=== PATIENT | male | born 1975 | race Hispanic/Latino ===

== ENCOUNTER 2019-09-12 22:40 | Inpatient (IN) | payer SELFPAY ==
[2019-09-12] MEDS ORDERED: NA CHLORIDE 0.9% 2,000 ML ONE (22:53)
[2019-09-12] MEDS ORDERED: NA CHLORIDE 0.9% 1,000 ML ONE (23:02)
[2019-09-12] MEDS ORDERED: THIAMINE 200 MG/2 ML INJ ONE (23:02)
[2019-09-12] MEDS ORDERED: FOLIC ACID 5 MG/ML VIAL ONE (23:03)
[2019-09-12] MEDS ORDERED: PIPER/TAZO/NS 3.375gm 3.375 GM/100 ML BAG ONE (23:04)
--- NOTE | 2019-09-12 23:04 | EDPHYS ---
Physician Documentation [facility] Name: Lloyd Lizarraga Jr Age: 43 yrs Sex: Male : 1975 Arrival Date: 09/12/2019 Time: 22:48 Bed 4 Private MD: ED Physician Jerry Christopher HPI: 09/12 22:57 This 43 yrs old Male presents to ER via EMS with complaints of AMS, DRUG jennifer OVERDOSE. 22:57 The patient presents with a history of heart racing. Possible causes: drug use, jennifer alcohol, head injury, low blood sugar, sepsis. Associated signs and symptoms: Pertinent positives: combativeness, confusion. Patient's baseline: Neuro: alert and fully oriented. Unable to obtain HPI due to obtunded state, patient is being uncooperative. Historical: - Allergies: 23:22 No Known Allergies; wh - Home Meds: 23:22 Unable to obtain [Active]; wh - PMHx: 23:22 Unable to obtain; - PSHx: 23:22 Unable to obtain; - Immunization history:: Adult Immunizations unknown. - Social history:: Smoking status: Patient uses tobacco products. - Family history:: not pertinent. - Ebola Screening: : No symptoms or risks identified at this time. ROS: 22:57 Constitutional: Negative for fever, chills, and weight loss, Eyes: Negative for injury, jennifer pain, redness, and discharge, ENT: Negative for injury, pain, and discharge, Neck: Negative for injury, pain, and swelling, Respiratory: Negative for shortness of breath, cough, wheezing, and pleuritic chest pain, Abdomen/GI: Negative for abdominal pain, nausea, vomiting, diarrhea, and constipation, Back: Negative for injury and pain, : Negative for injury, bleeding, discharge, and swelling, MS/Extremity: Negative for injury and deformity, Skin: Negative for injury, rash, and discoloration, Psych: Negative for depression, anxiety, suicide ideation, homicidal ideation, and hallucinations, Allergy/Immunology: Negative for hives, rash, and allergies, Endocrine: Negative for neck swelling, polydipsia, polyuria, polyphagia, and marked weight changes, Hematologic/Lymphatic: Negative for swollen nodes, abnormal bleeding, and unusual bruising. 22:57 Cardiovascular: Positive for palpitations. 22:57 Neuro: Positive for altered mental status. Exam: 22:57 Constitutional: This is a well developed, well nourished patient who is awake, alert, jennifer and in no acute distress. Head/Face: Normocephalic, atraumatic. Eyes: Pupils equal round and reactive to light, extra-ocular motions intact. Lids and lashes normal. Conjunctiva and sclera are non-icteric and not injected. Cornea within normal limits. Periorbital areas with no swelling, redness, or edema. ENT: Nares patent. No nasal discharge, no septal abnormalities noted. Tympanic membranes are normal and external auditory canals are clear. Oropharynx with no redness, swelling, or masses, exudates, or evidence of obstruction, uvula midline. Mucous membranes moist. Neck: Trachea midline, no thyromegaly or masses palpated, and no cervical lymphadenopathy. Supple, full range of motion without nuchal rigidity, or vertebral point tenderness. No Meningismus. Chest/axilla: Normal chest wall appearance and motion. Nontender with no deformity. No lesions are appreciated. Respiratory: Lungs have equal breath sounds bilaterally, clear to auscultation and percussion. No rales, rhonchi or wheezes noted. No increased work of breathing, no retractions or nasal flaring. Abdomen/GI: Soft, non-tender, with normal bowel sounds. No distension or tympany. No guarding or rebound. No evidence of tenderness throughout. Back: No spinal tenderness. No costovertebral tenderness. Full range of motion. Male : Normal genitalia with no discharge or lesions. Skin: Warm, dry with normal turgor. Normal color with no rashes, no lesions, and no evidence of cellulitis. MS/ Extremity: Pulses equal, no cyanosis. Neurovascular intact. Full, normal range of motion. Psych: Awake, alert, with orientation to person, place and time. Behavior, mood, and affect are within normal limits. 22:57 Cardiovascular: Rate: tachycardic, Rhythm: regular, Pulses: Pulses are 2+ in bilateral radial, brachial, femoral, popliteal, posterior tibial and and dorsalis pedis arteries.. Heart sounds: normal, normal S1and S2, no S3 or S4, no murmur, no rub, no gallop, Edema: is not appreciated, JVD: is not appreciated. Vital Signs: 22:53 BP 84 / 68; Pulse 140; Resp 20; Temp 96.9; Pulse Ox 99% 2 lpm ; 09/13 00:04 Weight 81.65 kg; ea 00:06 BP 122 / 72; Pulse 124; Resp 18; Pulse Ox 100% ; ea 00:21 BP 122 / 72; Pulse 119; Resp 18; Pulse Ox 100% ; ea 00:25 Temp 97.4; ea 01:00 BP 102 / 64; Pulse 105; Resp 18; Pulse Ox 98% on R/A; ea 02:00 BP 106 / 65; Pulse 98; Resp 18; Temp 97.6; Pulse Ox 98% on R/A; ea 03:00 BP 105 / 68; Pulse 98; Resp 18; Pulse Ox 97% on R/A; MDM: 09/12 22:49 Patient medically screened. [facility] 23:00 Data reviewed: vital signs, nurses notes, lab test result(s), EKG, radiologic studies, [facility] CT scan, plain films. 09/12 22:50 Order name: Acetaminophen; Complete Time: 00:13 09/12 22:50 Order name: Basic Metabolic Panel; Complete Time: 00:13 09/12 22:50 Order name: CBC with Diff; Complete Time: 23:54 09/12 22:50 Order name: ETOH Level; Complete Time: 23:54 09/12 22:50 Order name: Hepatic Function; Complete Time: 00:13 09/12 22:50 Order name: PT-INR 09/12 22:50 Order name: Ptt, Activated 09/12 22:50 Order name: Salicylate; Complete Time: 23:54 09/12 22:50 Order name: Urine Drug Screen 09/12 22:56 Order name: Procalcitonin [facility] 09/12 22:56 Order name: Lactate; Complete Time: 23:54 [facility] 09/12 22:56 Order name: XRAY Chest (1 view) [facility] 09/12 22:56 Order name: CT Head C Spine [facility] 09/12 23:04 Order name: ABG; Complete Time: 23:54 aa1 09/12 23:04 Order name: Urine Dipstick--Ancillary (enter results); Complete Time: 23:54 cm6 09/12 23:40 Order name: Troponin (Emerg Dept Use Only); Complete Time: 00:13 EDMS 09/12 23:40 Order name: NT PRO-BNP; Complete Time: 00:13 EDHI 09/12 23:40 Order name: Magnesium; Complete Time: 00:13 [facility] 09/13 00:14 Order name: Lactate cm6 09/13 01:15 Order name: CBC with Automated Diff EDHI 09/13 01:15 Order name: CBC with Automated Diff EDHI 09/13 01:15 Order name: Comprehensive Metabolic Panel [facility] 09/13 01:15 Order name: Comprehensive Metabolic Panel [facility] 09/12 22:50 Order name: EKG; Complete Time: 22:51 09/12 22:50 Order name: EKG - Nurse/Tech; Complete Time: 23:00 09/12 22:50 Order name: IV Saline Lock; Complete Time: 23:00 09/12 22:50 Order name: Labs collected and sent; Complete Time: 23:01 09/12 22:50 Order name: Urine Dipstick-Ancillary (obtain specimen); Complete Time: 23:01 09/12 22:56 Order name: Cardiac monitoring; Complete Time: 23:01 [facility] 09/12 22:56 Order name: O2 Per Protocol; Complete Time: 23:01 [facility] 09/12 22:56 Order name: O2 Sat Monitoring; Complete Time: 23:01 [facility] 09/12 22:56 Order name: Newell; Complete Time: 23:01 [facility] 09/12 22:56 Order name: Restraint:Violent/Self Destructive (Adult:18yo or >); Complete Time: 23:01 [facility] 09/13 01:15 Order name: CONS Pharmacy Consult [facility] 09/13 01:15 Order name: Regular EDHI Administered Medications: 23:00 Drug: NS 0.9% (30 ml/kg) 30 ml/kg Route: IV; Rate: bolus; Site: right forearm; 09/13 01:56 Follow up: Response: No adverse reaction; IV Status: Completed infusion; IV Intake: ea 2500ml 09/12 23:10 Drug: foLIC Acid 1 mg Route: IVPB; Site: right forearm; ea 09/13 00:04 Follow up: IV Status: Completed infusion 09/12 23:11 Drug: Thiamine 100 mg Route: IV; Rate: bolus; Site: right forearm; ea 09/13 00:04 Follow up: Response: No adverse reaction; IV Status: Completed infusion 09/12 23:15 Drug: Zosyn 3.375 grams Route: IVPB; Infused Over: 60 mins; Site: left antecubital; 09/13 00:20 Follow up: Response: No adverse reaction; IV Status: Completed infusion; IV Intake: ea 100ml 00:04 Drug: NS 0.9% 1000 ml Route: IV; Rate: 125 ml/hr; Site: left antecubital; 01:54 Drug: Potassium Chloride 20 mEq Route: IV; Rate: per protocol; Site: left antecubital; 03:22 Follow up: Response: No adverse reaction; IV Status: Completed infusion Disposition: 09/12/19 23:03 Hospitalization ordered by Mary Anne Proctor for Inpatient Admission. Preliminary diagnosis are Altered mental status, unspecified, Tachycardia, unspecified, Abuse of non-psychoactive substances, Hypokalemia. - Bed requested for Telemetry/MedSurg (Inpatient). - Status is Inpatient Admission. - Condition is Stable. - Problem is new. - Symptoms are unchanged. UTI on Admission? No Signatures: Dispatcher [employer] EDHI Jerry Christopher MD MD cha Garcia, Cindy, RN AIMEE Kristina Menendez RN RN ea Habalo, Winsy Corrections: (The following items were deleted from the chart) 09/12 23:39 22:57 MAGNESIUM+C.LAB.BRZ ordered. [facility] 23:39 22:57 PROBNP+C.LAB.BRZ ordered. [facility] EDHI 23:39 22:57 TROPONIN (EMERG DEPT USE ONLY)+C.LAB.BRZ ordered. [facility] 09/13 00:14 09/12 23:03 Hospitalization Ordered by Mary Anne Proctor MD for Inpatient Admission. [facility] Preliminary diagnosis is Altered mental status, unspecified; Tachycardia, unspecified; Abuse of non-psychoactive substances. Bed requested for Telemetry/MedSurg (Inpatient). Status is Inpatient Admission. Condition is Stable. Problem is new. Symptoms are unchanged. UTI on Admission? No. jennifer 09/13 01:53 00:14 09/12/2019 23:03 Hospitalization Ordered by Mary Anne Proctor MD for Inpatient cg Admission. Preliminary diagnosis is Altered mental status, unspecified; Tachycardia, unspecified; Abuse of non-psychoactive substances; Hypokalemia. Bed requested for Telemetry/MedSurg (Inpatient). Status is Inpatient Admission. Condition is Stable. Problem is new. Symptoms are unchanged. UTI on Admission? No. jennifer 03:19 01:53 09/12/2019 23:03 Hospitalization Ordered by Mary Anne Proctor MD for Inpatient Admission. Preliminary diagnosis is Altered mental status, unspecified; Tachycardia, unspecified; Abuse of non-psychoactive substances; Hypokalemia. Bed requested for Telemetry/MedSurg (Inpatient). Status is Inpatient Admission. Condition is Stable. Problem is new. Symptoms are unchanged. UTI on Admission? No.
--- NOTE | 2019-09-12 23:04 | ER ---
Nurse's Notes [facility] Name: Lloyd Lizarraga Jr Age: 43 yrs Sex: Male : 1975 Arrival Date: 09/12/2019 Time: 22:48 Bed 4 Private MD: Diagnosis: Altered mental status, unspecified;Tachycardia, unspecified;Abuse of non-psychoactive substances;Hypokalemia Presentation: 09/12 22:49 Presenting complaint: EMS states: [place] was [place] the [place], someone was able to track his friend and his friend called EMS. Transition of care: patient was not received from another setting of care. Onset of symptoms was September 12, 2019. Risk Assessment: Do you want to hurt yourself or someone else? Unable to obtain. Initial Sepsis Screen: Does the patient meet any 2 criteria? HR > 90 bpm. Does the patient have a suspected source of infection? No. Patient's initial sepsis screen is negative. Care prior to arrival: Medication(s) given: Narcan 2 mg IV IV initiated. 18 GA, in the left antecubital area, Glucose check: 108. 22:49 Method Of Arrival: EMS: [facility] 22:49 Acuity: MIGUELINA 3 Triage Assessment: 23:25 General: Appears Unresponsive. Historical: - Allergies: 23:22 No Known Allergies; - Home Meds: 23:22 Unable to obtain [Active]; - PMHx: 23:22 Unable to obtain; - PSHx: 23:22 Unable to obtain; - Immunization history:: Adult Immunizations unknown. - Social history:: Smoking status: Patient uses tobacco products. - Family history:: not pertinent. - Ebola Screening: : No symptoms or risks identified at this time. Screenin:22 Abuse screen: Denies threats or abuse. Denies injuries from another. Nutritional screening: No deficits noted. Tuberculosis screening: No symptoms or risk factors identified. Fall Risk None identified. Assessment: 23:23 General: Behavior is unresponsive. Pt responds to pain. Pain: Unable to use pain scale. wh Patient is unresponsive. Neuro: Level of Consciousness is unresponsive, Pupils are pinpoint. Cardiovascular: Heart tones S1 S2. Respiratory: Airway is patent Respiratory effort is even, unlabored, Respiratory pattern is regular, symmetrical, Breath sounds are clear bilaterally. GI: Abdomen is flat, non-distended. : Genitalia appear normal. EENT: Oral mucosa is moist. Derm: Skin is intact, is healthy with good turgor, Skin is pink, warm \T\ dry. normal. Musculoskeletal: Circulation, motion, and sensation intact. 09/13 00:00 Reassessment: Patient and/or family updated on plan of care and expected duration. Pain ea level reassessed. Pt resting no longer attempting to remove IV lines. Order obtained to discontinue restraints. Restraints discontinued, pt tolerated well. Pt resting with eyes closed, respirations even and symmetrical. No s/s of pain or discomfort. 01:00 Reassessment: Patient and/or family updated on plan of care and expected duration. Pain ea level reassessed. Pt resting with eyes closed, respirations even and unlabored, chest expansions even and symmetrical. 02:45 Reassessment: Patient and/or family updated on plan of care and expected duration. Pain ea level reassessed. Pt resting with eyes closed, respirations even and unlabored. Chest expansions even and symmetrical. No s/s of pain or discomfort noted at this time. 03:20 Reassessment: Patient and/or family updated on plan of care and expected duration. Pain ea level reassessed. Pt resting with eyes closed, respirations even and unlabored, chest expansions even and symmetrical. No s/s of pain or discomfort noted at this time. Pt admitted to fourth floor, left ED via stretcher, tolerating well. Vital Signs: 09/12 22:53 BP 84 / 68; Pulse 140; Resp 20; Temp 96.9; Pulse Ox 99% 2 lpm ; 09/13 00:04 Weight 81.65 kg; ea 00:06 BP 122 / 72; Pulse 124; Resp 18; Pulse Ox 100% ; ea 00:21 BP 122 / 72; Pulse 119; Resp 18; Pulse Ox 100% ; ea 00:25 Temp 97.4; ea 01:00 BP 102 / 64; Pulse 105; Resp 18; Pulse Ox 98% on R/A; ea 02:00 BP 106 / 65; Pulse 98; Resp 18; Temp 97.6; Pulse Ox 98% on R/A; ea 03:00 BP 105 / 68; Pulse 98; Resp 18; Pulse Ox 97% on R/A; ED Course: 09/12 22:48 Patient arrived in ED. 22:49 Jerry Christopher MD is Attending Physician. [facility] 22:49 Hien Guallpa is Primary Nurse. 22:49 EKG done, by ED staff, reviewed by Jerry Christopher MD. Straight cath inserted, using fl sterile technique, 16 Fr. Specimen obtained. Returned clear yellow urine. Patient tolerated well. 22:50 Inserted saline lock: 18 gauge in right forearm, using aseptic technique. ea 22:52 Triage completed. 23:02 Mary Anne Proctor MD is Hospitalizing Provider. [facility] 23:02 Newell cath inserted, using sterile technique, 16 Fr., by dc, balloon inflated, to fl gravity drainage, urine specimen collected. returned clear yellow urine. Patient tolerated well. 23:05 Patient has correct armband on for positive identification. Placed in gown. Bed in low wh position. Call light in reach. Side rails up X 1. monitoring tech on. Pulse ox on. NIBP on. 23:11 Radiology exam delayed due to Patient is currently being attended by kw1 nursing/respiratory staff. 23:22 Arm band placed on right wrist. 23:25 XRAY Chest (1 view) In Process Unspecified. EDMS 23:49 CT Head C Spine In Process Unspecified. EDMS 09/13 03:14 No provider procedures requiring assistance completed. Patient admitted, IV remains in wh place. Restraints: 09/12 22:56 Violent/Self Destructive Restraint: Order: obtained. Initiated September 12, 2019 at ea 22:56 Staff present during the Initiation of Restraint: Hien Mckeon RN . Observed actions/behavior: unable to follow instructions, rptd attempts to remove/tamper lines/tubes/IV/med devices \T\ wnd dressing, Monitoring: Mental status: confused. Cognition: Unable to assess. Circulation: Within defined parameters (based on Cardiovascular assessment). Skin integrity: Within defined parameters (based on Integumentary assessment) Restraint status: Soft wrist restraint (Right) Started. Soft wrist restraint (Left) Started. 09/13 00:00 Violent/Self Destructive Restraint: Readiness for Discontinue: Release criteria met. No ea longer exhibiting violent or self destructive behavior. Alt interventions effective. Restraint discontinuation: Discontinued at September 13, 2019 at 00:00. Administered Medications: 09/12 23:00 Drug: NS 0.9% (30 ml/kg) 30 ml/kg Route: IV; Rate: bolus; Site: right forearm; ea 09/13 01:56 Follow up: Response: No adverse reaction; IV Status: Completed infusion; IV Intake: ea 2500ml 09/12 23:10 Drug: foLIC Acid 1 mg Route: IVPB; Site: right forearm; ea 09/13 00:04 Follow up: IV Status: Completed infusion 09/12 23:11 Drug: Thiamine 100 mg Route: IV; Rate: bolus; Site: right forearm; ea 09/13 00:04 Follow up: Response: No adverse reaction; IV Status: Completed infusion 09/12 23:15 Drug: Zosyn 3.375 grams Route: IVPB; Infused Over: 60 mins; Site: left antecubital; ea 09/13 00:20 Follow up: Response: No adverse reaction; IV Status: Completed infusion; IV Intake: ea 100ml 00:04 Drug: NS 0.9% 1000 ml Route: IV; Rate: 125 ml/hr; Site: left antecubital; 01:54 Drug: Potassium Chloride 20 mEq Route: IV; Rate: per protocol; Site: left antecubital; ea 03:22 Follow up: Response: No adverse reaction; IV Status: Completed infusion Intake: 00:20 IV: 100ml; Total: 100ml. ea 01:56 IV: 2500ml; Total: 2600ml. Outcome: 09/12 23:03 Decision to Hospitalize by Provider. [facility] 09/13 03:15 Admitted to Tele accompanied by tech, via stretcher, room 401, with chart, Report wh called to Allan Thompson RN Condition: stable Instructed on the need for admit. 03:19 Patient left the ED. Signatures: Dispatcher [employer] EDJerry Cruz MD MD cha Thompson, Moriah mt Antunez, Elena RN Hien Monroe ea, Kimberly kw1 Corrections: (The following items were deleted from the chart) 02:26 02:00 BP 106 / 65; Pulse 98bpm; Resp 18bpm; Pulse Ox 98% RA; ea 03:18 03:15 Admitted to Tele accompanied by tech, via stretcher, room 407, with chart, Report gabrielle called to Allan anthony
[2019-09-12 23:23] LABS: Arterial Blood Carboxyhemoglob 2.5 % (0-1.5); Blood Gas Oxyhemoglobin 95.5 % (94-97); Blood O2 Saturation 98.7 % (92-98.5)
[2019-09-12 23:43] LABS: Urine Blood NEGATIVE (NEG); Urine Glucose NEGATIVE (NEG); Urine Protein NEGATIVE (NEG); Urine Specific Gravity 1.015 (1.005-1.030)
[2019-09-12 23:45] LABS: Absolute Lymphocytes (CBC) 1.6 K/uL (0.7-4.9); Basophils % 1.1 % (0-1.3); Hematocrit 43.4 % (39.6-49.0); MPV 8.1 fL (7.6-11.3); RBC Red Blood Cell Count 4.51 M/uL (4.33-5.43)
[2019-09-12 23:59] LABS: ALT/SGPT 34 U/L (12-78); AST/SGOT 29 U/L (15-37); Alkaline Phosphatase 116 U/L (45-117); BUN Blood Urea Nitrogen 5 mg/dL (7-18); Bicarbonate 22 mmol/L (21-32); Bilirubin Direct 0.1 mg/dL (0-0.2); Bilirubin Total 0.6 mg/dL (0.2-1.0); Glucose Level 119 mg/dL (74-106); Magnesium 2.5 mg/dL (1.8-2.4); NT PRO-BNP 18 pg/mL (<125); Potassium 3.4 mmol/L (3.5-5.1); Protein, Total 7.2 g/dL (6.4-8.2); Sodium Level 139 mmol/L (136-145); Troponin (Emerg Dept Use Only) < 0.02 ng/mL (0.0-0.045)
[2019-09-13 00:19] LABS: Barbiturates NEGATIVE (NEGATIVE); Benzodiazepines NEGATIVE (NEGATIVE); Cocaine POSITIVE (NEGATIVE); METHAMPHETAM POSITIVE (NEGATIVE); Methadone NEGATIVE (NEGATIVE); Opiates NEGATIVE (NEGATIVE); Phencyclidine NEGATIVE (NEGATIVE); THC Cannibis NEGATIVE (NEGATIVE)
[2019-09-13] MEDS ORDERED: ACETAMINOPHEN 500 MG TAB PO PRN (01:12)
[2019-09-13] MEDS ORDERED: MORPHINE 4 MG/ML SYR IV PRN (01:12)
[2019-09-13] MEDS ORDERED: KCL 20 MEQ/100 mL IVPB 20 MEQ/100 ML BAG IV ONE (01:12)
[2019-09-13] MEDS ORDERED: ONDANSETRON 4 MG/2 ML VIAL IV PRN (01:12)
[2019-09-13] MEDS ORDERED: NA CHLORIDE 0.9% 1,000 ML IV SCH (02:00)
[2019-09-13 04:07] VITALS: BMI 24.0
--- NOTE | 2019-09-13 08:00 | P.HP ---
Certification for Inpatient Patient admitted to: Inpatient With expected LOS: >2 Midnights Patient will require the following post-hospital care: None Practitioner: I am a practitioner with admitting privileges, knowledge of patient current condition, hospital course, and medical plan of care. Services: Services provided to patient in accordance with Admission requirements found in Title 42 Section 412.3 of the Code of Federal Regulations Patient History Date of Service: 09/13/19 Reason for admission: Altered mental status History of Present Illness: Patient is a 43-year-old gentleman who came into the hospital lethargic and difficult to arouse. Patient was found to have cocaine and amphetamine intoxication as well as alcohol toxicity. Patient was brought into the emergency room and a CT of the brain was ordered. This was negative. Patient had multiple lab studies done which were unremarkable except for the alcohol level in the positive drug screen. Patient also had lactic acidosis. At this time, patient be admitted to the hospital for further evaluation. Allergies Unable to Assess Allergy (Unverified 09/13/19 02:40) - Past Medical/Surgical History -: UNABLE TO OBTAIN HISTORY, PT IS AMS Past Surgical History: Unable to obtain - Family History Father Family History: Reviewed- Non-Contributory - Social History Smoking Status: Unknown if ever smoked Review of Systems 10-point ROS is otherwise unremarkable Physical Examination - Vital Signs Temperature: 97.1 F Blood Pressure: 120/65 Pulse: 129 Respirations: 18 Pulse Ox (%): 98 - Physical Exam General: Alert, In no apparent distress, Oriented x3 HEENT: Atraumatic, PERRLA, Mucous membr. moist/pink, EOMI, Sclerae nonicteric Neck: Supple, 2+ carotid pulse no bruit, No LAD, Without JVD or thyroid abnormality Respiratory: Clear to auscultation bilaterally, Normal air movement Cardiovascular: Regular rate/rhythm, Normal S1 S2, No murmurs Gastrointestinal: Normal bowel sounds, Soft and benign, Non-distended, No tenderness Musculoskeletal: No clubbing, No swelling, No tenderness Integumentary: No rashes Neurological: Normal gait, Normal speech, Normal strength at 5/5 x4 extr, Normal tone, Sensation intact, Cranial nerves 3-12 intact, Normal affect Lymphatics: No axilla or inguinal lymphadenopathy - Studies Laboratory Data (last 24 hrs) 09/13/19 00:47: PT 11.8, INR 1.00, APTT 22.1 L 09/12/19 23:05: Magnesium Cancelled 09/12/19 23:05: WBC 3.1 L, Hgb 14.6, Hct 43.4, Plt Count 185 09/12/19 22:50: Sodium 139, Potassium 3.4 L, BUN 5 L, Creatinine 1.07, Glucose 119 H, Magnesium 2.5 H, Total Bilirubin 0.6, AST 29, ALT 34, Alkaline Phosphatase 116 Assessment & Plan - Problems (Diagnosis) (1) Altered mental status Current Visit: Yes Status: Acute (2) Amphetamine abuse Current Visit: Yes Status: Acute (3) Cocaine abuse Current Visit: Yes Status: Acute (4) Alcoholic intoxication Current Visit: Yes Status: Acute (5) Lactic acid acidosis Current Visit: Yes Status: Acute - Plan Plan: 1. IV hydration; if patient wakes up and neuro status is back to baseline then anticipate discharge home 2. Monitor neuro status; neurochecks q2 hr 3. CT of the brain is negative; if patient does not wake up more alert then we may need neurology consultation 4. GI and DVT prophylaxis Discharge Plan: Home Plan to discharge in: 48 Hours - Advance Directives Does patient have a Living Will: No Does patient have a Durable POA for Healthcare: No - Code Status/Comfort Care Code Status Assessed: Yes Code Status: Full Code Critical Care: No Time Spent Managing PTS Care (In Minutes): 45
--- NOTE | 2019-09-13 08:27 | RAD REPORT ---
EXAM DESCRIPTION: RAD - Chest Single View - 09/12/2019 11:27 pm CLINICAL HISTORY: Cough, altered mental status COMPARISON: None. TECHNIQUE: AP portable chest image was obtained 2321 hours . FINDINGS: Lungs are clear. Heart and vasculature are normal. No measurable pleural effusion and no p neumothorax. No acute bony abnormality seen. No acute aortic findings suspected. IMPRESSION: No acute cardiopulmonary process.
--- NOTE | 2019-09-13 09:32 | RAD REPORT ---
EXAM DESCRIPTION: CT - [id number] - 09/13/2019 2:52 am CLINICAL HISTORY: Trauma. COMPARISON: None. TECHNIQUE: CT scan of the brain and cervical spine without IV contrast. This exam was performed acco rding to our departmental dose-optimization program, which includes automated exposure control, adjus tment of the mA and/or kV according to patient size and/or use of iterative reconstruction technique. FINDINGS: BRAIN: The ventricles, cisterns, and sulci are age-appropriate. No evidence of acute infarction, intracrania l hemorrhage, extra-axial fluid collection, or midline shift. No air-fluid levels are seen in the par anasal sinuses to suggest acute sinusitis. No depressed skull fracture. CERVICAL SPINE: No acute cervical fracture or prevertebral soft tissue swelling. There is straightening of the normal cervical lordosis, which may be due to cervical collar, muscle spasm, or patient positioning. There is mild multilevel degenerative disc disease. The facet joints are intact. No high-grade spinal canal stenosis is identified. The visualized lungs are clear. IMPRESSION: 1. No acute intracranial hemorrhage. 2. No acute fracture or subluxation of the cervical spine. Electronically signed by: Arnoldo Howard MD 09/12/2019 11:57 PM CDT Due to temporary technical issues with the PACS/Fluency reporting system, reports are being signed by the in house radiologist as a courtesy to ensure prompt reporting. The interpreting radiologist is f ully responsible for the content of the report.
[2019-09-13] MEDS: FOLIC ACID 1 MG, MULTIVITAMINS INJ 10 ML, THIAMINE HCL 100 MG in NA CHLORIDE 0.9% 1,000 ML IV SCH (10:52)
--- NOTE | 2019-09-13 12:11 | EKG ---
Test Date: 2019-09-12 Test Time: 22:42:18 Assistant Store Manager Operations: MOHAMUD MEASUREMENT RESULTS: Intervals: Rate: 151 NV: QRSD: 76 QT: 280 QTc: 443 [place]: P: NV: QRS: 6 T: 45 INTERPRETIVE STATEMENTS: Supraventricular tachycardia Nonspecific ST abnormality Abnormal ECG No previous ECG available for comparison Electronically Signed On 09-13-19 12:09:08 CDT by Royer Pacheco
[2019-09-13 12:28] LABS: Absolute Lymphocytes (CBC) 0.7 K/uL (0.7-4.9); Basophils % 0.3 % (0-1.3); Lymphocytes % 10.4 % (15.3-44.8); MPV 8.3 fL (7.6-11.3); RBC Red Blood Cell Count 4.51 M/uL (4.33-5.43)
[2019-09-13 12:55] LABS: ALT/SGPT 26 U/L (12-78); AST/SGOT 22 U/L (15-37); Albumin 3.2 g/dL (3.4-5.0); Alkaline Phosphatase 93 U/L (45-117); BUN Blood Urea Nitrogen 4 mg/dL (7-18); Bicarbonate 25 mmol/L (21-32); Bilirubin Total 0.9 mg/dL (0.2-1.0); Glucose Level 75 mg/dL (74-106); Potassium 3.6 mmol/L (3.5-5.1); Protein, Total 5.7 g/dL (6.4-8.2); Sodium Level 144 mmol/L (136-145)
[2019-09-13] MEDS: LORazepam 2 MG/ML VIAL IV PRN (14:06)
[2019-09-13 14:52] LABS: Blood Morphology Comment NOT SEEN (NOT SEEN); Platelet Estimate ADEQ; Urine White Blood Cell Casts OK
[2019-09-14] MEDS: LORazepam 2 MG/ML VIAL IV PRN ×2 (04:22→23:10)
[2019-09-14 05:01] LABS: Absolute Lymphocytes (CBC) 0.9 K/uL (0.7-4.9); Basophils % 0.5 % (0-1.3); Hematocrit 42.1 % (39.6-49.0); Lymphocytes % 9.1 % (15.3-44.8); MPV 8.3 fL (7.6-11.3); RBC Red Blood Cell Count 4.46 M/uL (4.33-5.43)
[2019-09-14 05:10] LABS: ALT/SGPT 23 U/L (12-78); AST/SGOT 23 U/L (15-37); Albumin 3.1 g/dL (3.4-5.0); Alkaline Phosphatase 100 U/L (45-117); BUN Blood Urea Nitrogen 6 mg/dL (7-18); Bicarbonate 25 mmol/L (21-32); Bilirubin Total 0.8 mg/dL (0.2-1.0); Glucose Level 79 mg/dL (74-106); Potassium 3.3 mmol/L (3.5-5.1); Protein, Total 6.2 g/dL (6.4-8.2); Sodium Level 142 mmol/L (136-145)
[2019-09-14 05:29] LABS: Blood Morphology Comment NOT SEEN (NOT SEEN); Platelet Estimate ADEQ
[2019-09-14] MEDS: FOLIC ACID 1 MG, MULTIVITAMINS INJ 10 ML, THIAMINE HCL 100 MG in NA CHLORIDE 0.9% 1,000 ML IV SCH (10:20)
--- NOTE | 2019-09-14 11:37 | P.PN ---
Subjective Date of Service: 09/14/19 Chief Complaint: Altered mental status Pt seen and examined at bedside. Chart reviewed. Feeling better than before. Pt appears to be less agitated at this time. Will monitor closely in ICU Review of Systems 10-point ROS is otherwise unremarkable Physical Examination - Vital Signs Temperature: 98.8 F Blood Pressure: 108/83 Pulse: 101 Respirations: 20 Pulse Ox (%): 98 - Physical Exam General: Alert, In no apparent distress HEENT: Atraumatic, PERRLA, EOMI Neck: Supple, JVD not distended Respiratory: Clear to auscultation bilaterally, Normal air movement Cardiovascular: Regular rate/rhythm, Normal S1 S2 Gastrointestinal: Normal bowel sounds, No tenderness Musculoskeletal: No tenderness Integumentary: No rashes Neurological: Normal speech, Normal tone, Normal affect Lymphatics: No axilla or inguinal lymphadenopathy - Studies Medications List Reviewed: Yes Assessment And Plan - Current Problems (Diagnosis) (1) Altered mental status Current Visit: Yes Status: Chronic Plan: Metabolic Encephalopathy -Most likely 2.2 to Alcohol vs Drug abuse -Will monitor closely Qualifiers: Altered mental status type: delirium Qualified Code(s): R41.0 - Disorientation, unspecified (2) Alcoholic intoxication Current Visit: Yes Status: Acute Plan: Pt initial Alcohol level > 110 -IV fluids with multivitamins -CIWA protocol \ Qualifiers: Complication of substance-induced condition: with delirium Qualified Code(s ): F10.921 - Alcohol use, unspecified with intoxication delirium (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
[2019-09-14] MEDS: NA CHLORIDE 0.9% 1,000 ML IV SCH (17:50)
[2019-09-15] MEDS: NA CHLORIDE 0.9% 1,000 ML IV SCH (01:12)
[2019-09-15] MEDS: FOLIC ACID 1 MG, MULTIVITAMINS INJ 10 ML, THIAMINE HCL 100 MG in NA CHLORIDE 0.9% 1,000 ML IV SCH (08:53)
[2019-09-15] MEDS ORDERED: LORazepam 2 MG/ML VIAL IV PRN (12:13)
--- NOTE | 2019-09-15 12:26 | P.PN ---
Subjective Date of Service: 09/15/19 Primary Care Provider: none Chief Complaint: Altered mental status Subjective: Other (Patient appears improved. Less agitated this morning. Nurses provided medication last night for agitation.) Physical Examination - Vital Signs Temperature: 98.2 F Blood Pressure: 121/87 Pulse: 68 Respirations: 12 Pulse Ox (%): 99 - Physical Exam General: Alert, In no apparent distress, Cooperative HEENT: Atraumatic Neck: Supple Respiratory: Clear to auscultation bilaterally, Normal air movement Cardiovascular: Normal pulses, Regular rate/rhythm Gastrointestinal: Normal bowel sounds, Soft and benign, Non-distended, No masses , No rebound, No guarding Neurological: Normal speech, Normal strength at 5/5 x4 extr, Normal tone, Normal affect - Studies Medications List Reviewed: Yes Assessment & Plan Discharge Plan: Psychiatry Plan to discharge in: 24 Hours Physician Review Additional Text: Impression: Metabolic encephalopathy related to alcohol abuse with intoxication complicated with amphetamine and cocaine abuse Suicidal ideation Depression with anxiety Plan: Patient less agitated today. Will transition off IV fluids. Will provide Librium. Will provide IV benzodiazepine as needed for agitation. Will monitor the patient closely. Will consult [facility] to evaluate patient for inpatient psychiatric evaluation and treatment. Patient likely requires transfer to inpatient facility to continue his care. Time Spent Managing Pts Care (In Minutes): 55
[2019-09-15] MEDS: chlordiazePOXIDE HCl 5 MG CAP PO SCH ×2 (13:17→21:10)
[2019-09-15] MEDS ORDERED: ENOXAPARIN 40 MG/0.4 ML SQ SCH (17:00)
[2019-09-15] MEDS: FAMOTIDINE 20 MG TAB PO SCH (21:10)
[2019-09-16 08:02] VITALS: O2SAT 95
[2019-09-16] MEDS: chlordiazePOXIDE HCl 5 MG CAP PO SCH ×2 (08:20→13:35)
[2019-09-16] MEDS: FAMOTIDINE 20 MG TAB PO SCH (08:20)
[2019-09-16] MEDS ORDERED: MULTIVITAMIN TAB PO SCH (09:00)
[2019-09-16] MEDS ORDERED: FOLIC ACID 1 MG TABLET PO SCH (09:00)
[2019-09-16] MEDS ORDERED: THIAMINE HCL 100 MG TABLET PO SCH (09:00)
--- NOTE | 2019-09-16 12:20 | P.PN ---
Subjective Date of Service: 09/16/19 Primary Care Provider: none Chief Complaint: Altered mental status Subjective: Improving, Doing well Physical Examination - Vital Signs Temperature: 98.2 F Blood Pressure: 121/96 Pulse: 82 Respirations: 20 Pulse Ox (%): 97 - Physical Exam General: Alert, In no apparent distress, Oriented x3, Cooperative HEENT: Atraumatic Neck: Supple Respiratory: Clear to auscultation bilaterally, Normal air movement Cardiovascular: Normal pulses, Regular rate/rhythm Gastrointestinal: Normal bowel sounds, Soft and benign, Non-distended Neurological: Normal speech, Normal strength at 5/5 x4 extr, Normal tone, Normal affect - Studies Medications List Reviewed: Yes Assessment & Plan Discharge Plan: Psychiatry Plan to discharge in: 24 Hours Physician Review Additional Text: Impression: Metabolic encephalopathy related to alcohol abuse with intoxication complicated with amphetamine and cocaine abuse Suicidal ideation Depression with anxiety Possible GERD Plan: Patient stable this time. No significant agitation. Patient on Librium. Will hold Librium if with increase sedation. Repeat lab stable. Vital signs stable. Continue with current medications. Patient evaluated by [facility] yesterday. They agree with inpatient psychiatric transfer for evaluation and treatment. Continue with transfer process. Hopefully transfer psychiatric facility today. Patient in agreement with plan of care. Patient medically stable for transfer. Time Spent Managing Pts Care (In Minutes): 55
[2019-09-16 15:37] VITALS: BP 102/91
--- NOTE | 2019-09-16 16:19 | P.DS ---
Admission Date: 09/13/19 Discharge Date: 09/16/19 Primary Care Provider: none Disposition: TRANSFR TO OTHER-PSY/CD/REHAB Discharge Condition: GOOD Reason for Admission: Altered mental status Consultations: none Procedures: CT Scan: CXR: Medical Problem List: Metabolic encephalopathy related to alcohol abuse with intoxication complicated with amphetamine and cocaine abuse Suicidal ideation Depression with anxiety Possible GERD Brief History of Present Illness: 43-year-old male presented to the emergency room with altered mental status. [place] the [place] by a friend. Patient was brought in for further evaluation. Patient found to be severely dehydrated with lactic acidosis. Positive for cocaine, amphetamine and alcohol. Patient admitted for further evaluation and treatment. Hospital Course: Patient presented with altered mental status secondary to metabolic encephalopathy with lactic acidosis due to dehydration. Patient also positive for methamphetamines, alcohol and cocaine. Patient with history of depression/ anxiety verses bipolar disorder. Patient was given IV fluids with improvement. Patient was monitored and evaluated for alcohol withdrawal. The patient did well in his stay. Family was concerned that he may have overdosed on his psychiatric medications. Patient takes multiple medications but unsure as the patient was recently incarcerated. Patient was eventually evaluated by [facility]. [facility] recommended inpatient psychiatric evaluation as patient was having some suicidal ideation. Patient agreed with plan to transfer. Inpatient psychiatric transfer was approved. Case discussed with psychiatry who agrees with transfer. Currently patient medically stable at this time. Lactic acidosis has resolved. Patient well hydrated. Patient alert oriented and appropriate with his mobility. Patient currently on Librium 10 mg t.i.d.. This is held for increased sedation. Patient also taking folic acid, thiamine and multi vitamin. Patient will be transferred to [facility] for further evaluation and treatment. Vital Signs/Physical Exam: Temp Pulse Resp BP Pulse Ox 98.2 F 91 H 12 102/91 H 96 09/16/19 12:20 09/16/19 15:00 09/16/19 15:00 09/16/19 15:00 09/16/19 15:00 General: Alert, In no apparent distress, Oriented x3, Cooperative HEENT: Atraumatic Neck: Supple Respiratory: Clear to auscultation bilaterally, Normal air movement Cardiovascular: Normal pulses, Regular rate/rhythm Gastrointestinal: Normal bowel sounds, Soft and benign, Non-distended, No tenderness, No masses, No rebound, No guarding Musculoskeletal: No erythema, No tenderness, No warmth Integumentary: No tenderness/swelling, No erythema, No warmth, No cyanosis Neurological: Normal speech, Normal strength at 5/5 x4 extr, Normal tone, Normal affect Laboratory Data at Discharge: WBC 10.2 K/uL (4.3-10.9) D 09/14/19 04:43 Hgb 14.7 g/dL (13.6-17.9) 09/14/19 04:43 Hct 42.1 % (39.6-49.0) 09/14/19 04:43 Plt Count 181 K/uL (152-406) 09/14/19 04:43 PT 11.8 SECONDS (9.5-12.5) 09/13/19 00:47 INR 1.00 09/13/19 00:47 APTT 22.1 SECONDS (24.3-36.9) L 09/13/19 00:47 Sodium 142 mmol/L (136-145) 09/14/19 04:43 Potassium 3.3 mmol/L (3.5-5.1) L 09/14/19 04:43 BUN 6 mg/dL (7-18) L 09/14/19 04:43 Creatinine 0.79 mg/dL (0.55-1.3) 09/14/19 04:43 Glucose 79 mg/dL (74-106) 09/14/19 04:43 Magnesium Cancelled 09/12/19 23:05 Total Bilirubin 0.8 mg/dL (0.2-1.0) 09/14/19 04:43 AST 23 U/L (15-37) 09/14/19 04:43 ALT 23 U/L (12-78) 09/14/19 04:43 Alkaline Phosphatase 100 U/L (45-117) 09/14/19 04:43 Home Medications: Cyclobenzaprine HCl 10 mg PO TIDP PRN 09/15/19 Divalproex Sodium 500 mg PO BID 09/15/19 Escitalopram [Lexapro*] 20 mg PO DAILY 09/15/19 Sadorus Carbonate [Lithotabs *] 2 tab PO BEDTIME 09/15/19 Quetiapine [Seroquel*] 100 mg PO BEDTIME 09/15/19 risperiDONE [Risperdal] 2 mg PO BEDTIME 09/15/19 Patient Discharge Instructions: Patient be transferred to inpatient psych. For further evaluation and treatment. Patient medically stable for discharge. Diet: Regular Activity: Ad reny Time spent managing pt's care (in minutes): 55
[2019-09-16 16:29] VITALS: TEMP 97.9
== END 2019-09-16 16:27 | DRG 896 ==
LOC: ER 22:40 → ERHOLD 09-13 01:12 → 4TH 09-13 02:46 → 3RD-ICU 09-13 10:25
PROVIDERS: ADMIT Hospitalist; ATTEND Family Medicine
DX: F10.121 Alcohol abuse with intoxication delirium (principal); G93.41 Metabolic encephalopathy; E87.2 Acidosis; R45.851 Suicidal ideations; F15.10 Other stimulant abuse, uncomplicated; F14.10 Cocaine abuse, uncomplicated; Y90.5 Blood alcohol level of 100-119 mg/100 ml; F41.8 Other specified anxiety disorders; K21.9 Gastro-esophageal reflux disease without esophagitis; E86.0 Dehydration; Z72.89 Other problems related to lifestyle
CPT/HCPCS: 36415; 51702; 70450; 71045; 72125; 80048; 80053; 80076; 80164; 80178; 80307; 80320; 80329; 81003; 82805; 82947; 83605; 83735; 83880; 84145; 84484; 85025; 85610; 85730; 93005; 96361; 96365; 96367; 96368; 97112; 97116; 97161; 99285; J1650; J2543; J3411; J7030